=== PATIENT | female | born 1980 | race Caucasian/White ===

== ENCOUNTER 2024-09-08 20:14 | Observation (INO) | payer MEDICAID, SELFPAY ==
[2024-09-08] VITALS (10 sets, daily range): BP systolic 127–131; BP diastolic 76–84; PULSE 79–93; RESP 19–98; TEMP 36.7; O2SAT 96–99; BMI 36.8
== END 2024-09-08 20:56 | disposition home or self-care (01) ==
PROVIDERS: Admitting Provider Specialist; Visit Provider Specialist
DX: O26.893 Other specified pregnancy related conditions, third trimester (principal); Z3A.35 35 weeks gestation of pregnancy; R25.1 Tremor, unspecified
CPT/HCPCS: 59025; 59899

== ENCOUNTER 2024-10-05 20:28 | Inpatient (IN) | payer MEDICAID, SELFPAY ==
--- NOTE | 2024-10-02 07:14 | ESHP_ITS ---
RE: SUSI PAL : 1980 DATE OF ADMISSION: 10/05/2024 HISTORY OF PRESENT ILLNESS: This is a 44-year-old 1 with due date of 10/11/2024 with intrauterine at 39 weeks 1 day on 10/05/2024, who presents for induction of labor for advanced maternal age. The patient's care was complicated by advanced maternal age. She underwent maternal medicine ultrasounds, which showed normal anatomy. Her antepartum screening has been reassuring. She has elevated blood pressures in the office, but at home, her pressures are normal. She does not take any medication for blood pressure. She reports normal movement. She denies any leaking or bleeding. She reports occasional contractions. ALLERGIES: NO KNOWN DRUG ALLERGIES. MEDICATIONS: 1. multivitamin 1 p.o. daily. 2. Aspirin 81 mg 1 p.o. daily. 3. Ferrous sulfate 325 mg 1 p.o. daily. PAST MEDICAL HISTORY: Advanced maternal age, iron deficiency anemia, white coat hypertension, marijuana use, first trimester. SOCIAL HISTORY: She has occasional marijuana use. Denies any alcohol use. FAMILY HISTORY: Denies. PAST SURGICAL HISTORY: Denies. REVIEW OF SYSTEMS: She denies any chest pain, palpitations, cough, fever, shortness of breath or lower extremity pain. She denies any headache, change in vision or right upper quadrant pain. PHYSICAL EXAMINATION: VITAL SIGNS: Blood pressure is 129/83, heart rate 88, respirations 18, and temperature is 98.6. HEENT: Oropharynx and sclerae are clear. LUNGS: Clear to auscultation bilaterally. HEART: Regular rate and rhythm. ABDOMEN: Gravid consistent with estimated weight of 7-1/2 pounds. PELVIC: See RN notes. EXTREMITIES: Nontender. SKIN: No gross rashes or lesions. NEUROLOGIC: No focal deficits. ASSESSMENT AND PLAN: Intrauterine at 39 weeks 1 day on 10/05/2024, advanced maternal age, induction of labor. Anticipate spontaneous vaginal delivery. Informed consent was obtained. The patient was made aware of the risks, complications, alternatives, and benefits of the operative vaginal delivery and delivery and agrees with these modes of delivery if indicated. DT: 16:47:29 TT: 18:09:00 Ref: [id number] - TID: [id number] MTDD
[2024-10-05] VITALS (11 sets, daily range): BP systolic 116–159; BP diastolic 55–100; PULSE 71–88; RESP 19; TEMP 36.8; O2SAT 99–100; BMI 38.5
--- NOTE | 2024-10-05 21:21 | XR_ITS ---
Examination: . Age Limited TECHNIQUE: Limited transabdominal sonographic images pelvis Examination time: October 05, 2024 at 9:38 PM INDICATIONS: Pelvic contractions today, unknown presentation FINDINGS: Viable intrauterine gestation cephalic presentation spine maternal left Cardiac motion 143 BPM Placenta anterior grade 2 IMPRESSION: Viable intrauterine gestation cephalic presentation
[2024-10-05 21:45] LABS: Collection Type, Urine Clean Catch
[2024-10-05 21:49] LABS: Basophils % (Auto) 0 % (0-2.5); Eosinophils # (Auto) 0.1 Thou/mm3 (0.0-0.5); Eosinophils % (Auto) 1 % (0-10); Hematocrit 35.8 % (36.0-46.0); Hemoglobin 12.2 g/dL (12.0-16.0); Immature Granulocytes % (Auto) 1 % (0-0); Immature Granulocytes Auto 0.06 Thou/mm3 (0.00-0.00); Lymphocytes # (Auto) 2.3 Thou/mm3 (1.0-4.8); Lymphocytes % (Auto) 25 % (10-50); Mean Corpuscular HGB Conc 34.1 g/dl (31.0-37.0); Mean Corpuscular Hemoglobin 29.3 pg (25.0-35.0); Mean Corpuscular Volume 86 fL (80-100); Monocytes # (Auto) 0.6 Thou/mm3 (0.0-0.8); Monocytes % (Auto) 7 % (0-12); Neutrophils # (Auto) 6.2 Thou/mm3 (1.8-7.7); Neutrophils % (Auto) 66 % (37-80); Nucleated Red Blood Cell % 0 /100 WBC (0); Platelet Count 268 Thou/mm3 (140-440); Red Blood Count 4.17 Miln/mm3 (4.00-5.20); White Blood Count 9.4 Thou/mm3 (3.6-11.0)
[2024-10-05 21:59] LABS: Bilirubin,Urine Negative (Negative); Blood,Urine Negative (Negative); Clarity,Urine Clear (Clear/Hazy); Color,Urine Lt-Yellow (Lt Yel-Yel); Glucose, Urine Negative (Negative); Ketones,Urine Negative (Negative); Leukocyte Esterase,Urine Negative (Negative); Nitrite,Urine Negative (Negative); PH,Urine 6.5 (5.0-7.0); Protein,Urine Trace (Neg - Trace); RBC,Urine 3 /hpf (0-3); Specific Gravity,Urine 1.033 (1.001-1.035); Squamous Epithelial Cell,Urine 5 /hpf (0-5); Urobilinogen,Urine Negative mg/dL (0.0-1.0); WBC,Urine 1 /hpf (0-5)
[2024-10-05 22:08] LABS: Amphetamine/Metham Scrn,Ur OB Negative (Negative); Benzoylecgonine Screen, Ur OB Negative (Negative); Opiate Screen,Urine OB Negative (Negative); THC Screen,Urine OB Negative (Negative)
[2024-10-05 22:16] LABS: Alanine Aminotransferase < 7 U/L (10-49); Albumin, Serum 3.9 gm/dL (3.5-5.0); Albumin/Globulin Ratio 1.3 (1.2-2.2); Alkaline Phosphatase 128 U/L (46-116); Anion Gap 11 (7-16); Aspartate Amino Transferase 10 U/L (0-34); BUN/Creatinine Ratio 13 Ratio (12-20); Bilirubin,Total 0.4 mg/dL (0.3-1.2); Blood Urea Nitrogen 8 mg/dL (9-23); Calcium 9.3 mg/dL (8.3-10.6); Calcium (Corrected) 9.4 mg/dL (8.5-10.1); Carbon Dioxide 22.5 mMol/L (20.0-31.0); Chloride 103 mMol/L (98-107); Creatinine (Component) 0.6 mg/dL (0.6-1.3); Globulin 3.1 gm/dL (2.3-3.5); Glucose 76 mg/dL (74-106); Osmolality,Calculated 269 (275-295); Potassium 4.2 mMol/L (3.4-5.1); Sodium 136 mMol/L (136-145); eGFR > 60 See Note
[2024-10-05 22:24] LABS: Syphilis Nonreactive (Nonreactive)
[2024-10-05] MEDS: DINOPROSTONE 10 MG VAG.SUPP VAGINAL (22:35)
[2024-10-05 22:36] LABS: Fibrinogen 596 mg/dL (175-375); INR 0.9 (0.9-1.3); Partial Thromboplastin Time 25.6 Seconds (22.0-36.0); Prothrombin Time 9.8 Seconds (9.0-12.2)
[2024-10-06] VITALS (103 sets, daily range): BP systolic 61–211; BP diastolic 39–145; PULSE 61–134; RESP 16–19; TEMP 36.3–36.8; O2SAT 86–100
--- NOTE | 2024-10-06 07:39 | PD.LDPN ---
Documentation for date of: 10/06/24 OB Labor Progress Note Pain Control Comments: Not needed Pelvic Exam Comments: See RN notes Contractions Contraction frequency: irregular Status status: Category l Assessment and Plan Comments: Cervical ripening on going Anticipate either Cytotec or Pitocin depending on exam at 10:00.
[2024-10-06] MEDS: ACETAMINOPHEN 325 MG TABLET 650 MG PO (13:10)
[2024-10-06] MEDS: RINGERS LACTATED 1000 ML 1,000 ML 100 ML IV ×4 (13:10→23:03)
[2024-10-06] MEDS: OXYTOCIN in NS 30 units 30 UNIT/500 ML BAG IV (13:11)
[2024-10-06] MEDS: fentaNYL CIT INJ 50 mCg/ML AMP 2ML 100 MCG IV (17:17)
[2024-10-07] VITALS (132 sets, daily range): BP systolic 96–188; BP diastolic 53–109; PULSE 65–116; RESP 15–20; TEMP 36.5–37.2; O2SAT 92–100
[2024-10-07] MEDS: ONDANSETRON INJ 2 MG/ML INJ 2 ML 4 MG IV (00:29)
--- NOTE | 2024-10-07 06:39 | PD.LDPN ---
Documentation for date of: 10/07/24 OB Labor Progress Note Pain Control Comments: Epidural Pelvic Exam Dilation (cm): 3 Effacement (%): 70 station: -1 Amniotic membrane status: Intact Contractions Contraction frequency: q3-4 min Status status: Category l Assessment and Plan Pitocin rate (mU/min): 11 Comments: Failure to Progress Delivery Informed consent was obtained. The patient was made aware of the risks, complications, alternatives and benefits of the proposed procedure and she agrees.
[2024-10-07] MEDS: CITRIC ACID/SODIUM CITR 15 ML UDC (BICITRA) 30 ML PO (06:56)
[2024-10-07] MEDS: FAMOTIDINE INJ 10 MG/ML VIAL 2 ML 20 MG IV (06:57)
[2024-10-07] MEDS: ceFAZolin/D5W 2 GM IV 2 GM/100 ML BAG IV (06:58)
[2024-10-07] MEDS: RINGERS LACTATED 1000 ML 1,000 ML 100 ML IV (07:02)
--- NOTE | 2024-10-07 08:24 | PD.LDDS ---
DS: Providers Provider Date of admission: 10/05/24 20:28 Primary care physician: Physician No Primary/Family Admitting Provider: George Ivory MD Attending Provider on Admission: George Ivory MD Attending Provider on DC: George Ivory MD Discharging Provider: George Ivory MD DS: Diagnosis Problem List Completed Was Problem List Reviewed/Reconciled?: Yes Summary/Hosp Course Peripartum Data Procedures: Procedures Operation Date: 10/07/24 07:15 <No data on this case meets the specified criteria> Time Spent with Patient Time attestation: Total time spent providing and/or coordinating discharge services: Exam Vital Signs Temp Pulse Resp BP Pulse Ox 98.9 F 102 H 16 106/58 L 98 10/07/24 04:00 10/07/24 07:15 10/07/24 04:00 10/07/24 07:15 10/07/24 07:13 Discharge Plan Plan Patient Disposition: HOME (Self Care) Patient condition on transfer: Stable Prescriptions/Referrals Prescriptions/Med Rec: New hydrocodone-acetaminophen 5-325 mg tablet 1 tab PO Q6H MDD 4 PRN (Reason: pain) Qty: 20 0RF ibuprofen 600 mg tablet 600 mg PO Q6H PRN (Reason: pain) Qty: 30 0RF Continued Vitamin 27 mg iron- 800 mcg tablet 1 tab PO QDAY Discontinued aspirin 81 mg tablet,delayed release (DR/EC) 81 mg PO DAILY Referrals: No Primary/Family,Physician [Primary Care Provider] - Patient/Caregiver Discharge Instructions Discharge Activity: activity as tolerated Other Discharge Activity Instructions:: Follow up office 1 week. Print Language: Italian Stand Alone Forms: Suzi Award Info., Patient Portal Info Letter Discharge Order Discharge Orders: Discharge (Routine); Ordered 10/09/24 Ordered By: George Ivory Planned Discharge Date 10/09/24
[2024-10-07] MEDS: OXYTOCIN in NS 20 units 20 UNIT/1,000 ML BAG 125 UNIT IV ×2 (09:19→17:07)
[2024-10-07 12:44] LABS: Basophils % (Auto) 0 % (0-2.5); Eosinophils % (Auto) 0 % (0-10); Hematocrit 33.3 % (36.0-46.0); Hemoglobin 11.2 g/dL (12.0-16.0); Immature Granulocytes % (Auto) 0 % (0-0); Immature Granulocytes Auto 0.07 Thou/mm3 (0.00-0.00); Lymphocytes # (Auto) 1.5 Thou/mm3 (1.0-4.8); Lymphocytes % (Auto) 9 % (10-50); Mean Corpuscular HGB Conc 33.6 g/dl (31.0-37.0); Mean Corpuscular Hemoglobin 29.2 pg (25.0-35.0); Mean Corpuscular Volume 87 fL (80-100); Monocytes # (Auto) 0.9 Thou/mm3 (0.0-0.8); Monocytes % (Auto) 5 % (0-12); Neutrophils % (Auto) 85 % (37-80); Nucleated Red Blood Cell % 0 /100 WBC (0); Platelet Count 236 Thou/mm3 (140-440); RDW Standard Deviation 45.5 fL (36.4-46.3); Red Blood Count 3.83 Miln/mm3 (4.00-5.20); White Blood Count 16.5 Thou/mm3 (3.6-11.0)
[2024-10-07] MEDS: KETOROLAC INJ 30 MG/ML VIAL IVP ×2 (15:04→23:53)
[2024-10-07] MEDS: HYDROcodone/APAP 5/325 TABLET 1 TAB PO (16:48)
[2024-10-07] MEDS: IBUPROFEN TAB 400 MG TABLET 800 MG PO (20:06)
[2024-10-07] MEDS: Milk Of Magnesia Susp 30 ML UDC PO (20:07)
[2024-10-07] MEDS: SIMETHICONE 80 MG CHEW PO (20:07)
[2024-10-08] VITALS: BP 103/67; PULSE 75; RESP 18; TEMP 36.6; O2SAT 97
[2024-10-08 04:00] VITALS: BP 94/60; PULSE 60; RESP 19; TEMP 36.9; O2SAT 98
[2024-10-08] MEDS: HYDROcodone/APAP 5/325 TABLET 1 TAB PO ×3 (04:16→23:30)
[2024-10-08] MEDS: SIMETHICONE 80 MG CHEW PO ×4 (04:16→19:57)
--- NOTE | 2024-10-08 06:43 | OBDSUM_ITS ---
Data ([facility]) Data : 1 Para: 0 Term: 0 : 0 : 0 Delivery Data ([place]) Labor Data ROM Date: 10/07/24 ROM Time: 07:45 Rupture Type: AROM Delivery Data EDC: 10/11/24 EDC calculated by:: LMP/early US confirmation Labor Onset Stage 1 Date: 10/07/24 Labor Onset Stage 1 Time: 07:46 Labor Onset Stage 2 Date: 10/07/24 Labor Onset Stage 2 Time: 07:46 Delivery Date: 10/07/24 Delivery Time: 07:46 Gestational age (weeks): 39 Gestational age (days): 3 Placenta Delivery Date: 10/07/24 Placenta Delivery Time: 07:47 Delivered by: George Ivory Delivery nurse: Zainab Reynolds Other staff at delivery: Nurse Other staff at delivery: Cement Handler Other staff at delivery: RT Other staff at delivery: Student Nurse Other staff at delivery: Annie Sue Other staff at delivery: Amber Shore Other staff at delivery: [facility] Delivery Method Delivery: Delivery Type: Primary Presentation: Vertex Position: OP Anesthesia Type Primary Anesthesia: Epidural Placenta Placenta Delivery: Manual Placenta Cultures Obtained: No Placenta Sent for Examination: No Cord Sample: Cord Blood Obtained EBL Estimated blood loss (ml): 800 Additional Procedures none Complications Complications: none [place] Data ([place]) [place] Data Gender: Female Infant Weight Grams: 3085 1 Minute Total: 9 5 Minute Total: 9
[2024-10-08] MEDS: IBUPROFEN TAB 400 MG TABLET 800 MG PO ×2 (07:41→15:31)
[2024-10-08 08:00] VITALS: BP 105/68; PULSE 77; RESP 18; TEMP 36.9; O2SAT 98
--- NOTE | 2024-10-08 11:03 | PC.SS ---
LOTTERY MANAGER met with pt at bedside while FOB Jeremy Kay [phone] was present. Pt receives WIC, and Medical as a form of government assistance. Pt stated that she does not use alcohol, and was using THC but once found out she was she stopped using (baby and pt did not test positive for THC,) and their is not history of MH or DV. Pt currently lives with mom but plans on moving with FOB once she goes home, and pt stated having good support system. Pt was receiving care with Dr. Champion, only has one baby (new born,) and will be going home with OFB once d/c. Pt is taking baby girl to [facility] for care, and has all essentials ready for baby girl upon d/c.
--- NOTE | 2024-10-08 11:47 | PC.NURSE ---
Cleared by social worker masters
[2024-10-08 15:46] VITALS: BP 119/78; PULSE 89; RESP 18; TEMP 36.7; O2SAT 98
[2024-10-08] MEDS: ACETAMINOPHEN 325 MG TABLET 650 MG PO (19:57)
[2024-10-08] MEDS: Milk Of Magnesia Susp 30 ML UDC PO (19:57)
[2024-10-08 20:00] VITALS: BP 118/74; PULSE 88; RESP 16; TEMP 37; O2SAT 97
[2024-10-09] MEDS: HYDROcodone/APAP 5/325 TABLET 1 TAB PO (03:35)
[2024-10-09 03:43] VITALS: BP 119/76; PULSE 75; RESP 19; TEMP 36.6; O2SAT 96
[2024-10-09 08:15] VITALS: BP 118/77; PULSE 65; RESP 18; TEMP 36.6; O2SAT 98
[2024-10-09] MEDS: IBUPROFEN TAB 400 MG TABLET 800 MG PO (08:19)
--- NOTE | 2024-10-09 09:50 | ESPR_ITS ---
RE: SUSI PAL : 1980 DATE OF SERVICE: 10/09/2024 S: Postop #2, the patient denies any problem or complaints. She is voiding. She is ambulating. She is tolerating regular diet. She is passing flatus. She denies any excessive vaginal bleeding. She denies any dizziness or lightheadedness. She denies any chest pain, palpitations, shortness of breath or lower extremity pain. O: Vital Signs: Blood pressure 119/76, heart rate 75, respirations 19, temperature 97.8, pulse ox is 96% on room air. Lungs: Clear to auscultation bilaterally. Heart: Regular rate and rhythm. Abdomen: Incision clear and intact. Fundus is firm. Extremities: Nontender. ASSESSMENT: Postop day #2 status post delivery. P: Discharge home. Discharge instructions given. Follow up in the office in one week. DT: 07:05:11 TT: 09:49:00 Ref: [id number] - TID: [id number]
--- NOTE | 2024-10-09 14:07 | ESOP_ITS ---
RE: SUSI PAL : 1980 DATE OF OPERATION: 10/07/2024 PREOPERATIVE DIAGNOSES: 1. Intrauterine at 39 weeks. 2. Advanced maternal age. 3. Induction of labor. 4. Failed induction. POSTOPERATIVE DIAGNOSES: 1. Intrauterine at 39 weeks. 2. Advanced maternal age. 3. Induction of labor. 4. Failed induction. PROCEDURE PERFORMED: A primary low transverse section via Pfannenstiel skin incision. SURGEON: George Ivory DO STERILE PREPARATION TECHNICIAN: YOVANY Porter ANESTHESIA: Epidural. ANESTHESIOLOGIST: Dr. Cristobal. ESTIMATED BLOOD LOSS: 800 mL. COMPLICATIONS: None. COUNTS: Correct. PATHOLOGY: None. FINDINGS: A live female , cephalic presentation. Clear amniotic fluid. Apgars, see RN notes. Nuchal cord, occiput posterior. DESCRIPTION OF PROCEDURE: After proper informed consent was obtained and the patient was made aware of the risks, complications, alternatives, and benefits of the proposed procedure, she was taken to the operating room where she underwent induction of epidural anesthesia. She was prepped and draped in a sterile fashion. A timeout was performed. A Pfannenstiel skin incision was made with scalpel, carried through to the underlying layer of fascia with the Bovie. The fascia was nicked in the midline. The incision extended bilaterally with the Bovie. The inferior aspect of the fascial incision was grasped with Benjamin clamps, elevated, and the underlying rectus muscle dissected off with the Bovie. The rectus vessels were in the midline. The peritoneum identified between two Sofía clamps and entered sharply with the Metzenbaum scissors. The incision was extended superiorly and inferiorly with good visualization of the bladder. Bladder blade was then inserted. Vesicouterine peritoneum was incised transversely and bladder flap created digitally. The bladder blade was reinserted. The lower uterine segment was incised in the transverse fascia with the scalpel. The incision was extended bilaterally digitally. The infant's head delivered. The nuchal cord was reduced. Mouth and nose were suctioned with bulb suction. Shoulder and body delivered atraumatically. The cord was clamped and cut. The was sent off to the awaiting pediatric staff. Cord blood gases were sent. The placenta was then removed manually. The uterus was exteriorized and cleared of all clots and debris. The uterine incision was repaired with #1-0 chromic catgut suture in a running locking fashion. The second layer of same suture was used to imbricate the first layer and obtained excellent hemostasis. The vesicouterine peritoneum was closed with 2-0 chromic catgut suture in running fashion. The fundus was firm. The uterus was returned to the abdomen. The gutters were cleared of all clots and debris. The peritoneum was closed with 0 chromic catgut suture in running fashion. The muscle was closed with 0 chromic catgut suture in running fashion. The fascia was closed with #0 Vicryl beginning at each angle and ending in the center in running fashion. Subcutaneous tissue was irrigated with normal saline solution and found to be hemostatic and closed with 2-0 chromic catgut suture in a running fashion. The skin was closed with 4-0 Monocryl. A Dermabond Prineo dressing was applied. A sterile pressure dressing was applied. She tolerated the procedure well. Counts were correct. I discussed with the patient the nature of her condition, the intraoperative findings, expectation for recovery. All questions were answered. DT: 08:24:08 TT: 09:11:00 Ref: [id number] - TID: [id number]
== END 2024-10-09 11:50 | disposition home or self-care (01) | DRG 540 ==
LOC: S4SX 10-07 06:37 → S4NX 10-07 07:41
PROVIDERS: Admitting Provider Specialist; Visit Provider Specialist
PROC: 10D00Z1 Extraction of Products of Conception, Low, Open Approach (ICD-10-PCS; CPT 59514; principal; 2024-10-07 07:00)
DX: O69.81X0 Labor and delivery complicated by cord around neck, without compression, not applicable or unspecified (principal); Z3A.39 39 weeks gestation of pregnancy; Z37.0 Single live birth; O61.1 Failed instrumental induction of labor; O62.2 Other uterine inertia
CPT/HCPCS: 36415; 59409; 76815; 80053; 80307; 81001; 84550; 85025; 85384; 85610; 85730; 86780; 86850; 86900; 86901; J0689; J1885; J2274; J2371; J2405; J2590; J2795; J3010; J3490; J7120; A9270; J2270

== ENCOUNTER → 2024-11-02 | Outpatient (CLI) | payer MEDICAID, SELFPAY ==
--- NOTE | 2024-11-02 15:07 | XR_ITS ---
Examination: Bilateral wrists 4 views Technique: AP lateral right and left wrist total 4 views Exam date and time: November 02, 2024 1519 hrs. Indications: Bilateral wrist pain beginning one week ago. Findings: Mild sclerosis left narrowing bilateral radiocarpal intercarpal and carpometacarpal joints. No erosive arthritis No fractures No avascular necrosis Impression: Mild bilateral narrowing radiocarpal intercarpal and carpometacarpal joints
== END | disposition home or self-care (01) ==
LOC: CDIM 14:50
PROVIDERS: PCP Nurse Practitioner Family; Referring Provider Nurse Practitioner Family; Visit Provider Nurse Practitioner Family
DX: M25.832 Other specified joint disorders, left wrist (principal); M25.831 Other specified joint disorders, right wrist
CPT/HCPCS: 73100